=== PATIENT | female | born 1950 | race Caucasian/White ===

== ENCOUNTER 2019-02-02 05:20 | Day surgery (SDC) | payer OTHER ==
[~2019-02-02 05:20] MED LIST: AMBIEN5 MG; NEURONTIN300 MG; NORVASC2.5 M1; SIMVASTATIN5 MG; ULTRACET
[2019-02-02] MEDS ORDERED: ULTRACET PO (08:06)
== END 2019-02-02 10:20 | disposition home or self-care (01) ==
LOC: CIR.AMB 05:20
DX: C21.1 Malignant neoplasm of anal canal (principal)
CPT/HCPCS: 36561; C1751

== ENCOUNTER 2019-08-31 06:00 | Day surgery (SDC) | payer OTHER ==
[~2019-08-31 06:00] MED LIST changes: +ASPIR 8181 MG PO; +ULTRACET PO; +ZOLOFT25 MG PO
[2019-08-31] MEDS ORDERED: POLY119PG PO (10:32)
[2019-08-31] MEDS ORDERED: PERCOCET 5-3251 EACH PO (10:32)
[2019-08-31] MEDS ORDERED: NEURONTIN300 MG PO (10:32)
[2019-08-31] MEDS ORDERED: RECTICARE30 GM TOP (10:33)
== END 2019-08-31 15:05 | disposition home or self-care (01) ==
LOC: CIR.AMB 06:00
PROVIDERS: ATTEND Surgery
DX: C21.1 Malignant neoplasm of anal canal (principal); K62.4 Stenosis of anus and rectum

== ENCOUNTER 2019-12-29 09:24 | Day surgery (SDC) | payer OTHER ==
[~2019-12-29 09:24] MED LIST changes: +NEURONTIN300 MG PO; +PERCOCET 5-3251 EACH PO; +POLY119PG PO; +RECTICARE30 GM TOP
== END 2019-12-29 14:23 | disposition home or self-care (01) ==
LOC: AMB-ENDOS 09:24
PROVIDERS: ATTEND Surgery
DX: C21.8 Malignant neoplasm of overlapping sites of rectum, anus and anal canal (principal); Z20.828 Contact with and (suspected) exposure to other viral communicable diseases

== ENCOUNTER 2020-01-20 09:21 | Outpatient (CLI) | payer OTHER | END 2020-01-20 09:36 | disposition home or self-care (01) | LOC: LAB 09:21 | PROVIDERS: ATTEND Surgery | DX: R07.89 Other chest pain (principal); K62.4 Stenosis of anus and rectum; Z85.048 Personal history of other malignant neoplasm of rectum, rectosigmoid junction, and anus; C21.1 Malignant neoplasm of anal canal ==

== ENCOUNTER 2020-01-20 10:14 | Outpatient (CLI) | payer OTHER | END 2020-01-20 10:18 | disposition home or self-care (01) | LOC: RAD 10:14 | PROVIDERS: ATTEND Surgery | DX: R07.89 Other chest pain (principal); K62.4 Stenosis of anus and rectum; Z85.048 Personal history of other malignant neoplasm of rectum, rectosigmoid junction, and anus; C21.1 Malignant neoplasm of anal canal ==

== ENCOUNTER 2020-01-25 09:30 | Inpatient (IN) | payer OTHER ==
[~2020-01-25] VITALS: Ht 154.9 cm; Wt 49.9 kg
[2020-02-04] MEDS ORDERED: HYOSCYAMINE0.125 M1 SL (11:17)
[2020-02-04] MEDS ORDERED: INTEGRA F CAPS1 EACH PO (11:18)
[2020-02-04] MEDS ORDERED: ULTRACET PO (11:18)
== END 2020-02-04 12:22 | disposition home or self-care (01) | DRG 331 ==
LOC: SURH 02-01 05:42 → O/R 02-01 05:42 → SURH 02-01 09:30
PROVIDERS: ADMIT Surgery; ATTEND Surgery
PROC: 0DTP4ZZ Resection of Rectum, Percutaneous Endoscopic Approach (ICD-10-PCS; 2020-02-01)
PROC: 0DTQ4ZZ Resection of Anus, Percutaneous Endoscopic Approach (ICD-10-PCS; 2020-02-01)
PROC: 0D1N4Z4 Bypass Sigmoid Colon to Cutaneous, Percutaneous Endoscopic Approach (ICD-10-PCS; principal; 2020-02-01 10:30)
DX: C21.1 Malignant neoplasm of anal canal (principal); K62.4 Stenosis of anus and rectum; Z85.048 Personal history of other malignant neoplasm of rectum, rectosigmoid junction, and anus

== ENCOUNTER 2020-02-16 13:40 | Inpatient (IN) | payer OTHER ==
[~2020-02-16] VITALS: Ht 154.9 cm; Wt 40.8 kg
[~2020-02-16 13:40] MED LIST changes: +HYOSCYAMINE0.125 M1 SL; +INTEGRA F CAPS1 EACH PO
[2020-02-29] MEDS ORDERED: NEURONTIN300 MG PO (11:48)
[2020-02-29] MEDS ORDERED: ULTRACET PO (11:48)
[2020-02-29] MEDS ORDERED: HYOSCYAMINE0.125 M1 SL (11:48)
== END 2020-02-29 12:03 | disposition home or self-care (01) | DRG 336 ==
LOC: ER 13:40 → SURH 18:16
PROVIDERS: ADMIT Surgery; ATTEND Surgery
PROC: 3E0436Z Introduction of Nutritional Substance into Central Vein, Percutaneous Approach (ICD-10-PCS; 2020-02-17)
PROC: 02H633Z Insertion of Infusion Device into Right Atrium, Percutaneous Approach (ICD-10-PCS; 2020-02-17)
PROC: 0WQF4ZZ Repair Abdominal Wall, Percutaneous Endoscopic Approach (ICD-10-PCS; 2020-02-20)
PROC: 0DTJ4ZZ Resection of Appendix, Percutaneous Endoscopic Approach (ICD-10-PCS; 2020-02-20)
PROC: 0DN84ZZ Release Small Intestine, Percutaneous Endoscopic Approach (ICD-10-PCS; principal; 2020-02-20 09:45)
DX: K43.0 Incisional hernia with obstruction, without gangrene (principal); K56.51 Intestinal adhesions [bands], with partial obstruction; K35.890 Other acute appendicitis without perforation or gangrene; K56.7 Ileus, unspecified; Z20.828 Contact with and (suspected) exposure to other viral communicable diseases; D64.9 Anemia, unspecified; I11.0 Hypertensive heart disease with heart failure; I50.9 Heart failure, unspecified; K62.4 Stenosis of anus and rectum; Z93.3 Colostomy status

== ENCOUNTER 2021-01-09 21:01 | Emergency (ER) | payer OTHER ==
[~2021-01-09] VITALS: Ht 154.9 cm; Wt 54.4 kg
[2021-01-09] MEDS ORDERED: SERTRALINE 25 MG. (21:28)
[2021-01-09] MEDS ORDERED: ANASTROZOLE1 MG (21:28)
[2021-01-10] MEDS ORDERED: CIPRO500 MG PO (03:46)
== END 2021-01-10 03:53 | disposition home or self-care (01) ==
LOC: ER 21:01
DX: R10.32 Left lower quadrant pain (principal)

== ENCOUNTER 2021-01-13 13:26 | Inpatient (IN) | payer OTHER ==
[~2021-01-13] VITALS: Ht 154.9 cm; Wt 54.4 kg
[~2021-01-13 13:26] MED LIST changes: +ANASTROZOLE1 MG; +CIPRO500 MG PO; +SERTRALINE 25 MG.
[2021-01-19] MEDS ORDERED: TRAMADOL HCL50 MG PO (14:25)
[2021-01-19] MEDS ORDERED: ABANEU-SL TABL1 EACH SL (14:25)
[2021-01-19] MEDS ORDERED: ANASTROZOLE1 MG PO (14:25)
[2021-01-19] MEDS ORDERED: PRE PROTEIN1 EACH PO (14:25)
[2021-01-19] MEDS ORDERED: CIPRO500 MG PO (14:25)
[2021-01-19] MEDS ORDERED: INTEGRA F CAPS1 EACH PO (14:25)
[2021-01-19] MEDS ORDERED: NORVASC2.5 M1 PO (14:25)
[2021-01-19] MEDS ORDERED: AMBIEN5 MG PO (14:25)
[2021-01-19] MEDS ORDERED: NEURONTIN300 MG PO (14:25)
== END 2021-01-19 14:55 | disposition home or self-care (01) | DRG 694 ==
LOC: ER 13:26 → SEC-K 01-14 12:30 → SURH 01-14 12:30
PROVIDERS: Surgery; ADMIT Internal Medicine Geriatric Medicine; ATTEND Internal Medicine Geriatric Medicine
PROC: BW2110Z Computerized Tomography (CT Scan) of Abdomen and Pelvis using Low Osmolar Contrast, Unenhanced and Enhanced (ICD-10-PCS; 2021-01-14)
PROC: BT1FZZZ Fluoroscopy of Left Kidney, Ureter and Bladder (ICD-10-PCS; 2021-01-15)
PROC: 0TJ Urinary System, Inspection (ICD-10-PCS; principal; 2021-01-15 13:45)
PROC: 0T9130Z Drainage of Left Kidney with Drainage Device, Percutaneous Approach (ICD-10-PCS; 2021-01-16)
PROC: BW40ZZZ Ultrasonography of Abdomen (ICD-10-PCS; 2021-01-16)
DX: N13.30 Unspecified hydronephrosis (principal); C21.1 Malignant neoplasm of anal canal; N35.82 Other urethral stricture, female; K59.00 Constipation, unspecified; N17.8 Other acute kidney failure; Z20.822 Contact with and (suspected) exposure to COVID-19; I11.9 Hypertensive heart disease without heart failure; D64.9 Anemia, unspecified

== ENCOUNTER 2021-02-13 14:40 | Inpatient (IN) | payer OTHER ==
[~2021-02-13] VITALS: Ht 154.9 cm; Wt 52.2 kg
[~2021-02-13 14:40] MED LIST changes: +ABANEU-SL TABL1 EACH SL; +AMBIEN5 MG PO; +ANASTROZOLE1 MG PO; +NORVASC2.5 M1 PO; +PRE PROTEIN1 EACH PO; +TRAMADOL HCL50 MG PO
[2021-02-23] MEDS ORDERED: AMBIEN5 MG PO (12:30)
[2021-02-23] MEDS ORDERED: HYOSCYAMINE0.125 M1 SL (12:30)
[2021-02-23] MEDS ORDERED: NORFLEX100MG PO (12:30)
[2021-02-23] MEDS ORDERED: NEURONTIN300 MG PO (12:30)
[2021-02-23] MEDS ORDERED: ABANEU-SL TABL1 EACH SL (12:30)
[2021-02-23] MEDS ORDERED: FAMOTIDINE20 MG PO (12:30)
[2021-02-23] MEDS ORDERED: ANASTROZOLE1 MG PO (12:30)
[2021-02-23] MEDS ORDERED: INTEGRA F CAPS1 EACH PO (12:30)
[2021-02-23] MEDS ORDERED: PERCOCET 5-3251 EACH PO (12:41)
== END 2021-02-23 13:15 | disposition home or self-care (01) | DRG 699 ==
LOC: ER 14:40 → SEC-K 22:11 → SURH 02-14 12:40
PROVIDERS: ADMIT Internal Medicine Geriatric Medicine; ATTEND Internal Medicine Geriatric Medicine
PROC: BW21ZZZ Computerized Tomography (CT Scan) of Abdomen and Pelvis (ICD-10-PCS; 2021-02-13)
PROC: 0T25X0Z Change Drainage Device in Kidney, External Approach (ICD-10-PCS; principal; 2021-02-14)
PROC: 02HV33Z Insertion of Infusion Device into Superior Vena Cava, Percutaneous Approach (ICD-10-PCS; 2021-02-21)
DX: N99.522 Malfunction of incontinent external stoma of urinary tract (principal); N13.6 Pyonephrosis; C20 Malignant neoplasm of rectum; N10 Acute pyelonephritis; B96.1 Klebsiella pneumoniae [K. pneumoniae] as the cause of diseases classified elsewhere; I10 Essential (primary) hypertension; D64.9 Anemia, unspecified

== ENCOUNTER → 2021-03-25 | Day surgery (SDC) | payer OTHER ==
[~2021-03-25] MED LIST changes: +CLONAZEPAM0.5 MG PO; +FAMOTIDINE20 MG PO; +HORIZANT300 MG PO; +NORFLEX100MG PO
== END | disposition home or self-care (01) ==
LOC: ADM 03-20 07:45 → CIR.AMB 07:45
PROVIDERS: ATTEND Urology
DX: N13.1 Hydronephrosis with ureteral stricture, not elsewhere classified (principal); Z20.822 Contact with and (suspected) exposure to COVID-19

== ENCOUNTER 2021-08-27 15:55 | Emergency (ER) | payer OTHER ==
[~2021-08-27] VITALS: Ht 154.9 cm; Wt 51.3 kg
== END 2021-08-27 21:50 | disposition home or self-care (01) ==
LOC: ER 15:55
DX: M54.50 Low back pain, unspecified (principal); Z88.0 Allergy status to penicillin

== ENCOUNTER 2021-09-04 07:42 | Inpatient (IN) | payer OTHER ==
[~2021-09-04] VITALS: Ht 152.4 cm; Wt 51.3 kg
[2021-09-26] MEDS ORDERED: HYOSCYAMINE0.125 M1 SL (08:29)
[2021-09-26] MEDS ORDERED: GABAPENTIN300 MG PO (08:29)
[2021-09-26] MEDS ORDERED: FENTANYL1 EAC3 TD (08:30)
[2021-09-26] MEDS ORDERED: ULTRAM50 MG PO (08:30)
== END 2021-09-26 10:59 | disposition home or self-care (01) | DRG 330 ==
LOC: ER 07:42 → SURG 12:34 → SURH 12:34
PROVIDERS: ADMIT Surgery; ATTEND Surgery
PROC: BW21YZZ Computerized Tomography (CT Scan) of Abdomen and Pelvis using Other Contrast (ICD-10-PCS; 2021-09-09)
PROC: 0T788DZ Dilation of Bilateral Ureters with Intraluminal Device, Via Natural or Artificial Opening Endoscopic (ICD-10-PCS; 2021-09-13)
PROC: 0TP98DZ Removal of Intraluminal Device from Ureter, Via Natural or Artificial Opening Endoscopic (ICD-10-PCS; 2021-09-13)
PROC: 0TP98DZ Removal of Intraluminal Device from Ureter, Via Natural or Artificial Opening Endoscopic (ICD-10-PCS; 2021-09-13)
PROC: 02HV33Z Insertion of Infusion Device into Superior Vena Cava, Percutaneous Approach (ICD-10-PCS; 2021-09-19)
PROC: 0D180Z8 Bypass Small Intestine to Small Intestine, Open Approach (ICD-10-PCS; principal; 2021-09-19 15:30)
DX: K56.690 Other partial intestinal obstruction (principal); N13.39 Other hydronephrosis; C18.9 Malignant neoplasm of colon, unspecified; C78.6 Secondary malignant neoplasm of retroperitoneum and peritoneum; D64.9 Anemia, unspecified; F43.23 Adjustment disorder with mixed anxiety and depressed mood; Z20.822 Contact with and (suspected) exposure to COVID-19; Z93.3 Colostomy status; I11.9 Hypertensive heart disease without heart failure

== ENCOUNTER 2022-02-26 09:18 | Outpatient (CLI) | payer OTHER ==
[~2022-02-26 09:18] MED LIST changes: +FENTANYL1 EAC3 TD; +GABAPENTIN300 MG PO; +ULTRAM50 MG PO
== END 2022-02-26 10:39 | disposition home or self-care (01) ==
LOC: TOM 09:18
DX: C44.520 Squamous cell carcinoma of anal skin (principal)
CPT/HCPCS: 71260; 74177; Q9965

== ENCOUNTER 2022-03-07 05:30 | Day surgery (SDC) | payer OTHER ==
[~2022-03-07] VITALS: Ht 154.9 cm; Wt 42.2 kg
== END 2022-03-07 12:25 | disposition home or self-care (01) ==
LOC: CIR.AMB 05:30
PROVIDERS: ATTEND Urology
DX: N35.92 Unspecified urethral stricture, female (principal); Z88.0 Allergy status to penicillin; Z20.822 Contact with and (suspected) exposure to COVID-19

== ENCOUNTER 2023-06-11 19:22 | Inpatient (IN) | payer OTHER ==
[~2023-06-11] VITALS: Ht 154.9 cm; Wt 47.6 kg
[2023-06-11] MEDS ORDERED: PERCOCET 10-321 EACH PO (20:14)
[2023-06-11] MEDS ORDERED: METRONIDAZOLE/SODIUM CHLORIDE 100 ML IV SCH (20:33)
[2023-06-11] MEDS ORDERED: PANTOPRAZOLE SODIUM 40 MG in 0.9 % SODIUM CHLORIDE 8 ML IV PUSH SCH (20:34)
[2023-06-11] MEDS ORDERED: GABAPENTIN 300 MG CAPSULE PO SCH (20:35)
[2023-06-11] MEDS ORDERED: OxyCODONE HCL/APAP UD (PERCOCET) PO PRN (20:45)
[2023-06-11] MEDS ORDERED: RINGERS SOLUTION,LACTATED 1,000 ML IV SCH (20:45)
[2023-06-11] MEDS ORDERED: CIPROFLOXACIN IN 5 % DEXTROSE 200 ML IV SCH (21:00)
[2023-06-11] MEDS ORDERED: ZOLPIDEM TARTRATE 5 MG TABLET PO SCH (21:00)
[2023-06-11 21:23] LABS: HEMATOCRIT 28.9 % (36.0-45.00); HEMOGLOBIN 9.7 g/dL (12.0-15.00); MEAN CELL VOLUME 96.6 fL (80.00-100.00); MEAN CORPUSCULAR HEMOGLOBIN 32.5 pg (27.00-32.0); MEAN CORPUSCULAR HGB CONC 33.6 g/dl (32.0-36.0); PLATELET COUNT 443 K/uL (150-450); RED CELL DISTRIBUTION WIDTH 13.5 % (11.5-14.5)
[2023-06-11 21:43] LABS: INR 1.02; PARTIAL THROMBOPLASTIN TIME 26.5 SECONDS (22.0-34.0); PROTHROMBIN TIME 10.7 SECONDS (9.0-11.5)
[2023-06-11 21:48] LABS: BILIRUBIN TOTAL 0.18 mg/dL (0.3-1.2); CALCIUM 9.4 mg/dL (8.5-10.1); CREATININE SERUM 1.18 mg/dL (0.55-1.02); GFR 45.02; GLOBULINA 4.3 G/DL (2.4-3.5); POTASSIUM 4.16 mEq/L (3.5-5.1); TOTAL PROTEIN 7.3 gm/dL (6.4-8.2)
[2023-06-11 21:58] LABS: URINE APPEARANCE Turbid; URINE BILIRRUBIN Negative (NEGATIVE); URINE BLOOD Moderate; URINE COLOR Yellow; URINE GLUCOSE Negative (NEGATIVE); URINE LEUKOCYTE Large; URINE NITRATE Negative; URINE UROBILINOGEN 0.2 E.U./dl
[2023-06-11 22:00] LABS: URINE BACTERIA 1606.4 uL (0.0-1933); URINE EPITHELIAL CELLS 16.3 uL (0.0-38.8); URINE RBC 87.5 uL (0.0-20.8)
[2023-06-11 22:13] LABS: URINE PROTEIN 100 (NEGATIVE); URINE WBC > 5548.3 uL (0.0-23.2)
[2023-06-12 14:30] LABS: CALCIUM 9.4 mg/dL (8.5-10.1); CHOL HDL RATIO 2.7 (0-5.0); CREATININE SERUM 1.02 mg/dL (0.55-1.02); GFR 53.27; POTASSIUM 3.71 mEq/L (3.5-5.1)
[2023-06-12] MEDS ORDERED: Cyanocobalamin/Mecobalamin 1 TAB.SL SL SCH (16:00)
[2023-06-12] MEDS ORDERED: SOD FERRIC GLUC COMPLX/SUCROSE 62.5 MG in 0.9 % SODIUM CHLORIDE 50 ML IV SCH (16:00)
[2023-06-12] MEDS ORDERED: AA 5 %/CALCIUM/LYTES/DEXT 20 % 2,000 ML CENTRAL SCH (17:00)
[2023-06-12] MEDS ORDERED: GABAPENTIN 300 MG CAPSULE PO SCH (17:00)
[2023-06-14] MEDS ORDERED: PANTOPRAZOLE SODIUM 40 MG/VIAL VIAL ONE (06:43)
[2023-06-14 07:12] LABS: CALCIUM 8.5 mg/dL (8.5-10.1); CREATININE SERUM 1.02 mg/dL (0.55-1.02); GFR 53.27; POTASSIUM 4.12 mEq/L (3.5-5.1)
[2023-06-14 07:51] LABS: HEMATOCRIT 25.3 % (36.0-45.00); PLATELET COUNT 388 K/uL (150-450); RED BLOOD COUNT 2.66 M/uL (4.00-6.00); RED CELL DISTRIBUTION WIDTH 13.6 % (11.5-14.5)
[2023-06-14 07:52] LABS: MEAN CORPUSCULAR HEMOGLOBIN 33.4 pg (27.00-32.0)
[2023-06-14 07:53] LABS: HEMOGLOBIN 8.9 g/dL (12.0-15.00)
[2023-06-14] MEDS ORDERED: ONDANSETRON HCL 4 MG in 0.9 % SODIUM CHLORIDE 50 ML IV PRN (18:00)
[2023-06-15 07:10] LABS: HEMATOCRIT 26.5 % (36.0-45.00); MEAN CELL VOLUME 95.4 fL (80.00-100.00); MEAN CORPUSCULAR HEMOGLOBIN 32.5 pg (27.00-32.0); PLATELET COUNT 328 K/uL (150-450); RED BLOOD COUNT 2.78 M/uL (4.00-6.00); RED CELL DISTRIBUTION WIDTH 14.1 % (11.5-14.5)
[2023-06-15 07:29] LABS: INR 1.18; PARTIAL THROMBOPLASTIN TIME 28.8 SECONDS (22.0-34.0); PROTHROMBIN TIME 12.2 SECONDS (9.0-11.5)
[2023-06-15 07:37] LABS: ALBUMIN 2.3 gm/dL (3.4-5.0); ALKALINE PHOSPHATASE 82 U/L (50-136); ALT/SGPT 8 U/L (12-78); ANION GAP 5 (10.0-20.0); AST/SGOT 8 U/L (15-37); BILIRUBIN,CONJUGATED < 0.10 mg/dL (0.0-0.2); BLOOD UREA NITROGEN 20 mg/dL (7-18); BUN CREA RATIO 24 (7.0-25.0); CALCIUM 8.7 mg/dL (8.5-10.1); CARBON DIOXIDE 30 mEq/L (21-32); CHLORIDE 105 mmol/L (98-107); CHOL HDL RATIO 1.6 (0-5.0); CHOLESTEROL 98 mg/dL (0-200); CREATININE SERUM 0.85 mg/dL (0.55-1.02); GFR 65.74; GLOBULINA 2.9 G/DL (2.4-3.5); GLUCOSE FASTING 147 mg/dL (65-100); HDL 61 mg/dl (40-60); LDL 27 mg/dl (0-130); OSMOLALITY SERUM 277 MOSM/KG (275-295); POTASSIUM 3.97 mEq/L (3.5-5.1); SODIUM 136 mmol/L (136-145); TOTAL PROTEIN 5.2 gm/dL (6.4-8.2); TRIGLYCERIDES 50 mg/dL (0-150); VLDL 10 (0-39)
[2023-06-15] MEDS ORDERED: AMINO ACIDS/PROTEIN HYDROLYS 30 ML BLIST.PACK PO SCH (11:00)
[2023-06-15] MEDS ORDERED: HYOSCYAMINE SULFATE 0.125 MG TAB.SUBL SL PRN (13:45)
[2023-06-15] MEDS ORDERED: MEPERIDINE HCL/PF 50 MG/ML VIAL IV PRN (15:45)
[2023-06-17] MEDS ORDERED: ENOXAPARIN SODIUM 40 MG/0.4 ML SYRINGE SUBCUTANEO SCH (04:47)
[2023-06-18] MEDS ORDERED: fentaNYL 25 MCG PATCH.TD72 TD SCH (09:00)
[2023-06-18] MEDS ORDERED: CHOLESTYRAMINE/ASPARTAME LIGHT 4 G/PKT PACKET PO ONE (21:45)
[2023-06-19 06:40] LABS: HEMOGLOBIN 9.5 g/dL (12.0-15.00); MEAN CELL VOLUME 95.3 fL (80.00-100.00); MEAN CORPUSCULAR HEMOGLOBIN 32.2 pg (27.00-32.0); MEAN CORPUSCULAR HGB CONC 33.8 g/dl (32.0-36.0); PLATELET COUNT 308 K/uL (150-450); RED BLOOD COUNT 2.94 M/uL (4.00-6.00); RED CELL DISTRIBUTION WIDTH 13.8 % (11.5-14.5)
[2023-06-19 07:05] LABS: CALCIUM 8.5 mg/dL (8.5-10.1); CREATININE SERUM 0.88 mg/dL (0.55-1.02); GFR 63.16; MAGNESIUM 2.1 mg/dL (1.8-2.4); PHOSPHOROUS 3.3 mg/dL (2.5-4.9); POTASSIUM 4.61 mEq/L (3.5-5.1)
[2023-06-19] MEDS ORDERED: SOD FERRIC GLUC COMPLX/SUCROSE 62.5 MG in 0.9 % SODIUM CHLORIDE 50 ML IV SCH (09:00)
[2023-06-19] MEDS ORDERED: MENTHOL/CETYLPYRD CL 1 LOZENGE MM SCH (15:45)
[2023-06-19] MEDS ORDERED: METRONIDAZOLE/SODIUM CHLORIDE 100 ML IV SCH (17:00)
[2023-06-19] MEDS ORDERED: CIPROFLOXACIN IN 5 % DEXTROSE 200 ML IV SCH (21:00)
[2023-06-20] MEDS ORDERED: MAGNESIUM HYDROXIDE PO SCH (17:00)
[2023-06-20] MEDS ORDERED: ALUMINUM HYDROXIDE PO SCH (17:00)
[2023-06-20] MEDS ORDERED: DIPHENHYDRAMINE HCL PO SCH (17:00)
[2023-06-20] MEDS ORDERED: LIDOCAINE HCL PO SCH (17:00)
[2023-06-20] MEDS ORDERED: SIMETHICONE PO SCH (17:00)
[2023-06-20] MEDS ORDERED: MAG HYDROX/ALUMINUM HYD/SIMETH 30 ML BLIST.PACK PO ONE (17:01)
[2023-06-21] MEDS ORDERED: MAG HYDROX/ALUMINUM HYD/SIMETH 30 ML BLIST.PACK PO ONE (07:12)
[2023-06-21] MEDS ORDERED: MAGNESIUM CITRATE 296 ML BOTTLE PO ONE (15:15)
[2023-06-21] MEDS ORDERED: AA 4.25%/CAL/LYTES/DEXT 5% 1,000 ML PERIFERAL SCH (17:00)
[2023-06-22 07:33] LABS: MEAN CELL VOLUME 96.3 fL (80.00-100.00); MEAN CORPUSCULAR HGB CONC 34.1 g/dl (32.0-36.0); PLATELET COUNT 230 K/uL (150-450); RED CELL DISTRIBUTION WIDTH 13.6 % (11.5-14.5)
[2023-06-22 07:44] LABS: INR 1.05; PARTIAL THROMBOPLASTIN TIME 31.5 SECONDS (22.0-34.0)
[2023-06-22 07:49] LABS: ALBUMIN 2.4 gm/dL (3.4-5.0); ALKALINE PHOSPHATASE 109 U/L (50-136); ALT/SGPT 12 U/L (12-78); ANION GAP 8 (10.0-20.0); AST/SGOT 28 U/L (15-37); BILIRUBIN TOTAL 0.24 mg/dL (0.3-1.2); BILIRUBIN,CONJUGATED < 0.10 mg/dL (0.0-0.2); BILIRUBIN,UNCONJUGATED 0.14 mg/dL (0.0-0.6); BLOOD UREA NITROGEN 23 mg/dL (7-18); BUN CREA RATIO 29 (7.0-25.0); CALCIUM 8.3 mg/dL (8.5-10.1); CARBON DIOXIDE 30 mEq/L (21-32); CHLORIDE 105 mmol/L (98-107); CHOLESTEROL 99 mg/dL (0-200); CREATININE SERUM 0.79 mg/dL (0.55-1.02); GFR 71.54; GLOBULINA 2.8 G/DL (2.4-3.5); GLUCOSE FASTING 98 mg/dL (65-100); HDL 33 mg/dl (40-60); LDL 39 mg/dl (0-130); OSMOLALITY SERUM 279 MOSM/KG (275-295); PHOSPHOROUS 3.5 mg/dL (2.5-4.9); POTASSIUM 4.63 mEq/L (3.5-5.1); SODIUM 138 mmol/L (136-145); TOTAL PROTEIN 5.2 gm/dL (6.4-8.2); TRIGLYCERIDES 136 mg/dL (0-150); VLDL 27 (0-39)
[2023-06-22] MEDS ORDERED: FAMOTIDINE/PF 20 MG/2 ML VIAL IV SCH (09:00)
[2023-06-22 09:07] LABS: MEAN CORPUSCULAR HEMOGLOBIN 32.6 pg (27.00-32.0)
[2023-06-22 09:08] LABS: HEMOGLOBIN 8.5 g/dL (12.0-15.00)
[2023-06-22] MEDS ORDERED: MIDAZOLAM HCL 2 MG/2 ML VIAL IV ONE (09:45)
[2023-06-22] MEDS ORDERED: DIPHENHYDRAMINE HCL 50 MG/ML VIAL 1ML IV ONE (09:45)
[2023-06-22] MEDS ORDERED: fentaNYL CITRATE 50 MCG/ML AMPUL IV PUSH ONE (09:45)
[2023-06-22] MEDS ORDERED: FUROsemide 20 MG/2 ML VIAL IV SCH (14:00)
[2023-06-22] MEDS ORDERED: MAG HYDROX/ALUMINUM HYD/SIMETH 30 ML BLIST.PACK PO ONE (14:59)
[2023-06-23] MEDS ORDERED: MAG HYDROX/ALUMINUM HYD/SIMETH 30 ML BLIST.PACK PO ONE ×2 (07:32→18:20)
[2023-06-23] MEDS ORDERED: FUROsemide 20 MG/2 ML VIAL ONE (16:07)
[2023-06-23 18:42] LABS: HEMATOCRIT 40.1 % (36.0-45.00); HEMOGLOBIN 13.7 g/dL (12.0-15.00); MEAN CELL VOLUME 94.2 fL (80.00-100.00); MEAN CORPUSCULAR HEMOGLOBIN 32.2 pg (27.00-32.0); MEAN CORPUSCULAR HGB CONC 34.2 g/dl (32.0-36.0); PLATELET COUNT 240 K/uL (150-450); RED BLOOD COUNT 4.26 M/uL (4.00-6.00); RED CELL DISTRIBUTION WIDTH 14.8 % (11.5-14.5)
[2023-06-24 06:18] LABS: HEMATOCRIT 37.3 % (36.0-45.00); HEMOGLOBIN 12.9 g/dL (12.0-15.00); MEAN CELL VOLUME 93.5 fL (80.00-100.00); MEAN CORPUSCULAR HEMOGLOBIN 32.5 pg (27.00-32.0); MEAN CORPUSCULAR HGB CONC 34.7 g/dl (32.0-36.0); PLATELET COUNT 220 K/uL (150-450); RED BLOOD COUNT 3.99 M/uL (4.00-6.00); RED CELL DISTRIBUTION WIDTH 14.7 % (11.5-14.5)
[2023-06-24] MEDS ORDERED: MAG HYDROX/ALUMINUM HYD/SIMETH 30 ML BLIST.PACK PO ONE ×2 (07:29→20:26)
[2023-06-24] MEDS ORDERED: APIXABAN 2.5 MG TABLET PO SCH (21:00)
[2023-06-25] MEDS ORDERED: PANTOPRAZOLE SODIUM 40 MG/VIAL VIAL IV SCH (06:00)
[2023-06-25] MEDS ORDERED: MAG HYDROX/ALUMINUM HYD/SIMETH 30 ML BLIST.PACK PO ONE ×2 (07:40→10:07)
[2023-06-25 08:06] LABS: HEMATOCRIT 38.5 % (36.0-45.00); HEMOGLOBIN 13.2 g/dL (12.0-15.00); MEAN CELL VOLUME 93.8 fL (80.00-100.00); MEAN CORPUSCULAR HEMOGLOBIN 32.2 pg (27.00-32.0); MEAN CORPUSCULAR HGB CONC 34.3 g/dl (32.0-36.0); PLATELET COUNT 221 K/uL (150-450); RED CELL DISTRIBUTION WIDTH 14.2 % (11.5-14.5)
[2023-06-25] MEDS ORDERED: ELIQUIS2.5 MG PO (08:46)
== END 2023-06-25 10:53 | disposition home or self-care (01) | DRG 394 ==
LOC: ER 19:23 → SEC-K 20:55 → SURG 06-12 01:54 → SEC-K 06-12 04:02 → SURH 06-12 18:07
PROVIDERS: General Practice; Internal Medicine; Internal Medicine Geriatric Medicine; ADMIT Surgery; ATTEND Surgery
PROC: BW21YZZ Computerized Tomography (CT Scan) of Abdomen and Pelvis using Other Contrast (ICD-10-PCS; 2023-06-11)
PROC: 02HV33Z Insertion of Infusion Device into Superior Vena Cava, Percutaneous Approach (ICD-10-PCS; principal; 2023-06-13)
PROC: 3E0436Z Introduction of Nutritional Substance into Central Vein, Percutaneous Approach (ICD-10-PCS; 2023-06-13)
PROC: B54CZZZ Ultrasonography of Left Lower Extremity Veins (ICD-10-PCS; 2023-06-13)
PROC: 0DJD8ZZ Inspection of Lower Intestinal Tract, Via Natural or Artificial Opening Endoscopic (ICD-10-PCS; 2023-06-22)
PROC: 30243N1 Transfusion of Nonautologous Red Blood Cells into Central Vein, Percutaneous Approach (ICD-10-PCS; 2023-06-23)
DX: N82.4 Other female intestinal-genital tract fistulae (principal); C21.2 Malignant neoplasm of cloacogenic zone; K56.609 Unspecified intestinal obstruction, unspecified as to partial versus complete obstruction; N13.30 Unspecified hydronephrosis; I82.402 Acute embolism and thrombosis of unspecified deep veins of left lower extremity; D64.9 Anemia, unspecified; N20.0 Calculus of kidney; N26.1 Atrophy of kidney (terminal); F43.23 Adjustment disorder with mixed anxiety and depressed mood; K12.1 Other forms of stomatitis; I10 Essential (primary) hypertension; Z51.12 Encounter for antineoplastic immunotherapy

== ENCOUNTER 2023-10-23 13:02 | Inpatient (IN) | payer OTHER ==
[~2023-10-23] VITALS: Ht 154.9 cm; Wt 40.8 kg
[~2023-10-23 13:02] MED LIST changes: +ELIQUIS2.5 MG PO; +GABAPENTIN300 M2; +PERCOCET 10-321 EACH PO
--- NOTE | 2023-10-23 13:07 | NUR ---
SE RECIBE PTE FEMENINA DE 73 ANOS AAOX3 QUIEN AL [place] REFIERE DOLOR ABDOMINAL EN COMPANIA DE VOMITOS Y NAUCEAS. PTE INDICA ESTO INICIA HACE 1 SINTIA SE MONITOREAN S/V Y SE UBICA EN SERAFIN.
[2023-10-23] MEDS ORDERED: FAMOtidine 10 MG/ML (4ML VIAL) IV STA (15:02)
[2023-10-23] MEDS ORDERED: ONDANSETRON HCL 2 MG/ML VIAL IV STA (15:03)
[2023-10-23] MEDS ORDERED: 0.9 % SODIUM CHLORIDE 1,000 ML IV STA (15:06)
[2023-10-23] MEDS ORDERED: FAMOtidine 200mg/20ml VIAL ONE (15:16)
[2023-10-23] MEDS ORDERED: ONDANSETRON HCL 2 MG/ML VIAL ONE ×2 (15:16→17:04)
--- NOTE | 2023-10-23 15:26 | NUR ---
SE ORIENTA PTE SOBRE TX MEDICO EL CUAL REFIERE ENTENDER.SE LE EXTRAEN MUESTRAS BAJO MEDIDAS ASEPTICAS,SE CANALIZA Y SE ADMINISTRAN MEDICAMENTOS NORIS ORDEN MEDICA.SE NOTIFICA CT PENDIENTE.
[2023-10-23 15:49] LABS: HEMATOCRIT 35.3 % (36.0-45.00); HEMOGLOBIN 11.8 g/dL (12.0-15.00); MEAN CORPUSCULAR HEMOGLOBIN 31.8 pg (27.00-32.0); MEAN CORPUSCULAR HGB CONC 33.5 g/dl (32.0-36.0); PLATELET COUNT 393 K/uL (150-450); RED BLOOD COUNT 3.71 M/uL (4.00-6.00); RED CELL DISTRIBUTION WIDTH 13.4 % (11.5-14.5); URINE APPEARANCE Turbid; URINE BILIRRUBIN Negative (NEGATIVE); URINE BLOOD Large; URINE COLOR Yellow; URINE GLUCOSE Negative (NEGATIVE); URINE KETONE Trace (NEGATIVE); URINE LEUKOCYTE Large; URINE NITRATE Positive; URINE UROBILINOGEN 0.2 E.U./dl
[2023-10-23 15:51] LABS: URINE CAST 7.48 uL (0.0-1.40); URINE RBC 1096.4 uL (0.0-20.8)
[2023-10-23 16:12] LABS: URINE BACTERIA > 9821.5 uL (0.0-1933); URINE EPITHELIAL CELLS 0.7 uL (0.0-38.8); URINE MUCUS MODERATE; URINE PROTEIN 300 (NEGATIVE)
[2023-10-23 16:18] LABS: ALBUMIN 3.2 gm/dL (3.4-5.0); ALKALINE PHOSPHATASE 122 U/L (50-136); ALT/SGPT 14 U/L (12-78); AMYLASE 68 U/L (25-115); ANION GAP 9 (10.0-20.0); AST/SGOT 16 U/L (15-37); BILIRUBIN TOTAL 0.31 mg/dL (0.3-1.2); BILIRUBIN,CONJUGATED < 0.10 mg/dL (0.0-0.2); BILIRUBIN,UNCONJUGATED 0.21 mg/dL (0.0-0.6); BLOOD UREA NITROGEN 17 mg/dL (7-18); BUN CREA RATIO 14 (7.0-25.0); CALCIUM 9.8 mg/dL (8.5-10.1); CARBON DIOXIDE 33 mEq/L (21-32); CHLORIDE 102 mmol/L (98-107); CREATININE SERUM 1.18 mg/dL (0.55-1.02); GFR 45.02; GLUCOSE FASTING 119 mg/dL (65-100); LIPASE 22 U/L (13-75); OSMOLALITY SERUM 280 MOSM/KG (275-295); POTASSIUM 4.67 mEq/L (3.5-5.1); SODIUM 139 mmol/L (136-145); TOTAL PROTEIN 7.6 gm/dL (6.4-8.2)
[2023-10-23] MEDS ORDERED: PANTOPRAZOLE SODIUM 40 MG/VIAL VIAL IV SCH ×2 (16:28→17:00)
[2023-10-23] MEDS ORDERED: TRAMADOL HCL 50 MG TABLET PO SCH (16:29)
[2023-10-23] MEDS ORDERED: RINGERS SOLUTION,LACTATED 1,000 ML IV SCH ×2 (16:30→16:45)
[2023-10-23] MEDS ORDERED: AA 4.25%/CAL/LYTES/DEXT 5% 1,000 ML PERIFERAL SCH ×2 (16:30→18:00)
[2023-10-23] MEDS ORDERED: CIPROFLOXACIN IN 5 % DEXTROSE 400 MG/200 ML PIGGYBAG IV SCH (16:32)
[2023-10-23] MEDS ORDERED: CIPROFLOXACIN IN 5 % DEXTROSE 400 MG/200 ML PIGGYBAG IV ONE (16:54)
[2023-10-23] MEDS ORDERED: GABAPENTIN 300 MG CAPSULE PO SCH (17:00)
[2023-10-23 17:20] VITALS: BP 119/71; O2SAT 98
[2023-10-23 17:29] LABS: INR 1.04; PARTIAL THROMBOPLASTIN TIME 27.9 SECONDS (22.0-34.0); PROTHROMBIN TIME 10.9 SECONDS (9.0-11.5)
[2023-10-23] MEDS ORDERED: ONDANSETRON HCL 2 MG/ML VIAL IV SCH (18:00)
[2023-10-23 18:23] LABS: ALBUMIN 3.3 gm/dL (3.4-5.0); BILIRUBIN TOTAL 0.36 mg/dL (0.3-1.2); CALCIUM 9.7 mg/dL (8.5-10.1); CREATININE SERUM 1.09 mg/dL (0.55-1.02); GFR 49.34; GLOBULINA 4.4 G/DL (2.4-3.5); MAGNESIUM 2.5 mg/dL (1.8-2.4); PHOSPHOROUS 3.7 mg/dL (2.5-4.9); POTASSIUM 3.81 mEq/L (3.5-5.1); TOTAL PROTEIN 7.7 gm/dL (6.4-8.2)
[2023-10-24] VITALS: BP 149/69; O2SAT 97
[2023-10-24 07:30] VITALS: BP 115/52; O2SAT 98
[2023-10-24 08:38] LABS: HEMATOCRIT 30.4 % (36.0-45.00); HEMOGLOBIN 10.4 g/dL (12.0-15.00); MEAN CELL VOLUME 94.5 fL (80.00-100.00); MEAN CORPUSCULAR HEMOGLOBIN 32.2 pg (27.00-32.0); MEAN CORPUSCULAR HGB CONC 34.1 g/dl (32.0-36.0); PLATELET COUNT 336 K/uL (150-450); RED BLOOD COUNT 3.22 M/uL (4.00-6.00); RED CELL DISTRIBUTION WIDTH 12.9 % (11.5-14.5)
[2023-10-24 08:55] LABS: ALBUMIN 2.7 gm/dL (3.4-5.0); CALCIUM 9.1 mg/dL (8.5-10.1); CREATININE SERUM 1.07 mg/dL (0.55-1.02); GFR 50.41; MAGNESIUM 2.5 mg/dL (1.8-2.4); PHOSPHOROUS 3.8 mg/dL (2.5-4.9); POTASSIUM 3.93 mEq/L (3.5-5.1)
[2023-10-24] MEDS ORDERED: ENOXAPARIN SODIUM 40 MG/0.4 ML SYRINGE SUBCUTANEO SCH ×2 (13:30→21:00)
[2023-10-24 14:15] LABS: CALCIUM 9.4 mg/dL (8.5-10.1); CHOL HDL RATIO 2.4 (0-5.0); CREATININE SERUM 1.11 mg/dL (0.55-1.02); GFR 48.32; POTASSIUM 3.95 mEq/L (3.5-5.1)
[2023-10-24 16:24] VITALS: BP 143/82; O2SAT 98
[2023-10-24] MEDS ORDERED: AMINO ACIDS 4.25 %/DEXTROSE 5% 1,000 ML PERIFERAL SCH (17:00)
[2023-10-25] VITALS: BP 115/66; O2SAT 97
[2023-10-25] MEDS ORDERED: ENOXAPARIN SODIUM 40 MG/0.4 ML SYRINGE SUBCUTANEO SCH (09:00)
[2023-10-25 10:15] VITALS: BP 112/62; O2SAT 97
[2023-10-25 10:16] VITALS: BP 112/62; O2SAT 97
[2023-10-25 11:33] LABS: ob NEGATIVE (NEGATIVE)
[2023-10-25 11:46] LABS: FECAL LEUKOCYTES POSITIVE (NEGATIVE)
[2023-10-25 16:00] VITALS: BP 138/65; O2SAT 99
[2023-10-26] VITALS: BP 136/85; O2SAT 99
[2023-10-26 07:19] LABS: HEMATOCRIT 29.6 % (36.0-45.00); HEMOGLOBIN 10.2 g/dL (12.0-15.00); MEAN CELL VOLUME 95.6 fL (80.00-100.00); MEAN CORPUSCULAR HEMOGLOBIN 33.1 pg (27.00-32.0); MEAN CORPUSCULAR HGB CONC 34.6 g/dl (32.0-36.0); PLATELET COUNT 313 K/uL (150-450); RED BLOOD COUNT 3.09 M/uL (4.00-6.00); RED CELL DISTRIBUTION WIDTH 12.6 % (11.5-14.5)
[2023-10-26 07:35] LABS: ERYTHROCYTE SEDIMENTATION RATE 40 mm/hr
[2023-10-26 08:00] VITALS: BP 130/56; O2SAT 98
[2023-10-26 08:13] LABS: INR 1.06; PROTHROMBIN TIME 11.1 SECONDS (9.0-11.5)
[2023-10-26 08:39] LABS: ALBUMIN 2.6 gm/dL (3.4-5.0); BILIRUBIN TOTAL 0.29 mg/dL (0.3-1.2); BILIRUBIN,CONJUGATED 0.11 mg/dL (0.0-0.2); BILIRUBIN,UNCONJUGATED 0.18 mg/dL (0.0-0.6); CALCIUM 9.1 mg/dL (8.5-10.1); CHOL HDL RATIO 2.3 (0-5.0); CREATININE SERUM 0.94 mg/dL (0.55-1.02); GFR 58.53; GLOBULINA 2.9 G/DL (2.4-3.5); MAGNESIUM 2.1 mg/dL (1.8-2.4); POTASSIUM 4.08 mEq/L (3.5-5.1); TOTAL PROTEIN 5.5 gm/dL (6.4-8.2)
[2023-10-26 08:45] LABS: C-REACTIVE PROTEIN 1.58 MG/DL (0.00-0.29)
[2023-10-26 17:57] VITALS: BP 166/67; O2SAT 99
[2023-10-26] MEDS ORDERED: ZOLPIDEM TARTRATE 10 MG TABLET PO SCH (21:00)
[2023-10-27 00:35] VITALS: BP 138/62; O2SAT 100
[2023-10-27] MEDS ORDERED: OxyCODONE HCL/APAP UD (PERCOCET) PO STA (00:58)
[2023-10-27] MEDS ORDERED: OxyCODONE HCL/APAP UD (PERCOCET) PO PRN (01:00)
[2023-10-27] MEDS ORDERED: DIPHENHYDRAMINE HCL 50 MG/ML VIAL 1ML IV SCH (07:30)
[2023-10-27 08:00] VITALS: BP 109/64; O2SAT 100
[2023-10-27] MEDS ORDERED: ENOXAPARIN SODIUM 40 MG/0.4 ML SYRINGE SUBCUTANEO SCH (09:00)
[2023-10-27 16:00] VITALS: BP 130/66; O2SAT 98
[2023-10-27] MEDS ORDERED: LORazepam 2 MG/ML VIAL IV PUSH SCH (21:00)
[2023-10-28 00:41] VITALS: BP 112/64; O2SAT 100
[2023-10-28 09:46] VITALS: BP 118/58; O2SAT 98
[2023-10-28] MEDS ORDERED: VANCOMYCIN HCL 1,000 MG VIAL IV SCH (10:10)
[2023-10-28] MEDS ORDERED: SUCRALFATE 1 G TABLET PO SCH (13:00)
[2023-10-28 16:00] VITALS: BP 103/51; O2SAT 99
[2023-10-28] MEDS ORDERED: ONDANSETRON HCL 2 MG/ML VIAL IV STA (23:15)
[2023-10-29 00:22] VITALS: BP 115/64; O2SAT 100
[2023-10-29] MEDS ORDERED: ONDANSETRON HCL 2 MG/ML VIAL IV SCH (01:00)
[2023-10-29 08:00] VITALS: BP 114/53; O2SAT 97
[2023-10-29 08:49] LABS: HEMATOCRIT 32.4 % (36.0-45.00); HEMOGLOBIN 11.1 g/dL (12.0-15.00); MEAN CELL VOLUME 94.9 fL (80.00-100.00); MEAN CORPUSCULAR HEMOGLOBIN 32.6 pg (27.00-32.0); MEAN CORPUSCULAR HGB CONC 34.3 g/dl (32.0-36.0); PLATELET COUNT 301 K/uL (150-450); RED BLOOD COUNT 3.42 M/uL (4.00-6.00); RED CELL DISTRIBUTION WIDTH 12.1 % (11.5-14.5)
[2023-10-29] MEDS ORDERED: TRAMADOL HCL 50 MG TABLET PO SCH (09:00)
[2023-10-29 09:47] LABS: CALCIUM 9.3 mg/dL (8.5-10.1); CREATININE SERUM 0.99 mg/dL (0.55-1.02); GFR 55.14; PHOSPHOROUS 2.8 mg/dL (2.5-4.9); POTASSIUM 3.78 mEq/L (3.5-5.1)
[2023-10-29] MEDS ORDERED: PANTOPRAZOLE SODIUM 80 MG in 0.9 % SODIUM CHLORIDE 100 ML IV SCH (13:33)
[2023-10-29 16:00] VITALS: BP 97/60; O2SAT 99
[2023-10-29] MEDS ORDERED: AMIKACIN SULFATE 10 MG/ML REDILUIDO IV SCH (20:47)
[2023-10-29] MEDS ORDERED: LINEZOLID IN DEXTROSE 5% 300 ML IV SCH (21:00)
[2023-10-30 02:15] VITALS: BP 116/59; O2SAT 99
[2023-10-30 08:17] VITALS: BP 115/61; O2SAT 99
[2023-10-30] MEDS ORDERED: AMIKACIN SULFATE 250 MG/ML (500MG) VIAL IV NR (11:15)
[2023-10-30] MEDS ORDERED: AZTREONAM 2,000 MG in 0.9 % SODIUM CHLORIDE 100 ML IV SCH (13:00)
[2023-10-30] MEDS ORDERED: IOVERSOL 320 MG/ML - 50 ML VIAL IV ONE (15:29)
[2023-10-30] MEDS ORDERED: SUGAMMADEX SODIUM 200 MG/2 ML VIAL IV ONE (16:00)
[2023-10-30] MEDS ORDERED: CLOTRIMAZOLE 10 MG TROCHE MM SCH (17:00)
[2023-10-30 18:20] VITALS: BP 133/58; O2SAT 100
[2023-10-30] MEDS ORDERED: SODIUM CL 0.9% 100 ML IV.SOLN IV ONE (20:33)
[2023-10-30] MEDS ORDERED: MORPHINE SULFATE 4 MG/ML VIAL IV PRN (21:30)
[2023-10-31] VITALS: BP 143/65; O2SAT 99
[2023-10-31 08:58] VITALS: BP 127/71; O2SAT 97
[2023-10-31] MEDS ORDERED: DIPHENHYDRAMINE HCL 50 MG/ML VIAL 1ML IV NR (10:45)
[2023-10-31] MEDS ORDERED: METHYLPREDNISOLONE SOD SUCC 40 MG VIAL IV NR (10:45)
[2023-10-31] MEDS ORDERED: DIATRIZOATE MEGLUMINE, SODIUM 30 ML BOTTLE PO NR (11:00)
[2023-10-31 17:00] VITALS: BP 147/65; O2SAT 98
[2023-11-01] VITALS: BP 132/63; O2SAT 100
[2023-11-01 08:11] VITALS: BP 107/76; O2SAT 98
[2023-11-01 08:28] LABS: HEMATOCRIT 31.1 % (36.0-45.00); HEMOGLOBIN 10.7 g/dL (12.0-15.00); MEAN CELL VOLUME 92.5 fL (80.00-100.00); MEAN CORPUSCULAR HEMOGLOBIN 31.7 pg (27.00-32.0); MEAN CORPUSCULAR HGB CONC 34.3 g/dl (32.0-36.0); PLATELET COUNT 277 K/uL (150-450); RED BLOOD COUNT 3.36 M/uL (4.00-6.00); RED CELL DISTRIBUTION WIDTH 12.4 % (11.5-14.5)
[2023-11-01 09:07] LABS: CREATININE SERUM 0.89 mg/dL (0.55-1.02); GFR 62.35
[2023-11-01 10:15] LABS: POTASSIUM 2.59 mEq/L (3.5-5.1)
[2023-11-01] MEDS ORDERED: POTASSIUM PHOS,M-BASIC-D-BASIC 15 MM in 0.9 % SODIUM CHLORIDE 250 ML IV ONE (12:00)
[2023-11-01 17:00] VITALS: BP 146/68; O2SAT 99
[2023-11-01] MEDS ORDERED: PHENOL 177 ML BOTTLE MM SCH (17:00)
[2023-11-02] VITALS: BP 138/65; O2SAT 98
[2023-11-02 08:00] VITALS: BP 132/60; O2SAT 99
[2023-11-02] MEDS ORDERED: MAGNESIUM SULFATE/D5W 100 ML IV NR (08:45)
[2023-11-02] MEDS ORDERED: POTASSIUM CHLORIDE 20MEQ/100ML H2O PB IV SCH (08:45)
[2023-11-02] MEDS ORDERED: MEPERIDINE HCL/PF 25 MG/ML VIAL IV SCH (09:00)
[2023-11-02 09:06] LABS: HEMATOCRIT 31.9 % (36.0-45.00); MEAN CELL VOLUME 93.1 fL (80.00-100.00); MEAN CORPUSCULAR HEMOGLOBIN 32.1 pg (27.00-32.0); MEAN CORPUSCULAR HGB CONC 34.4 g/dl (32.0-36.0); PLATELET COUNT 282 K/uL (150-450); RED BLOOD COUNT 3.42 M/uL (4.00-6.00); RED CELL DISTRIBUTION WIDTH 12.3 % (11.5-14.5)
[2023-11-02 09:33] LABS: INR 1.07; PARTIAL THROMBOPLASTIN TIME 26.5 SECONDS (22.0-34.0); PROTHROMBIN TIME 11.2 SECONDS (9.0-11.5)
[2023-11-02 09:51] LABS: ALBUMIN 2.4 gm/dL (3.4-5.0); ALKALINE PHOSPHATASE 124 U/L (50-136); ALT/SGPT 25 U/L (12-78); ANION GAP 9 (10.0-20.0); AST/SGOT 13 U/L (15-37); BILIRUBIN,CONJUGATED < 0.10 mg/dL (0.0-0.2); BLOOD UREA NITROGEN 14 mg/dL (7-18); BUN CREA RATIO 16 (7.0-25.0); CALCIUM 8.8 mg/dL (8.5-10.1); CARBON DIOXIDE 31 mEq/L (21-32); CHLORIDE 102 mmol/L (98-107); CHOL HDL RATIO 1.8 (0-5.0); CHOLESTEROL 99 mg/dL (0-200); CREATININE SERUM 0.86 mg/dL (0.55-1.02); GFR 64.86; GLOBULINA 3.4 G/DL (2.4-3.5); GLUCOSE FASTING 115 mg/dL (65-100); HDL 54 mg/dl (40-60); LDL 34 mg/dl (0-130); OSMOLALITY SERUM 279 MOSM/KG (275-295); PHOSPHOROUS 2.7 mg/dL (2.5-4.9); SODIUM 139 mmol/L (136-145); TOTAL PROTEIN 5.8 gm/dL (6.4-8.2); TRIGLYCERIDES 55 mg/dL (0-150); VLDL 11 (0-39)
[2023-11-02 10:30] LABS: POTASSIUM 2.81 mEq/L (3.5-5.1)
[2023-11-02] MEDS ORDERED: MEPERIDINE HCL/PF 25 MG/ML VIAL IV PRN (11:00)
[2023-11-02 11:11] LABS: UREA CLEARANCE 30.8 ML/MIN
[2023-11-02] MEDS ORDERED: fentaNYL 25 MCG PATCH.TD72 TD SCH (13:01)
[2023-11-02 16:10] VITALS: BP 121/56; O2SAT 99
[2023-11-02] MEDS ORDERED: FAMOTIDINE/PF 20 MG in 0.9 % SODIUM CHLORIDE 8 ML IV PUSH SCH (21:00)
[2023-11-03 00:05] VITALS: BP 143/68; O2SAT 99
[2023-11-03 09:09] VITALS: BP 118/58; O2SAT 97
[2023-11-03 16:44] VITALS: BP 120/57; O2SAT 100
[2023-11-04 00:26] VITALS: BP 134/63; O2SAT 98
[2023-11-04 07:41] LABS: CALCIUM 9.2 mg/dL (8.5-10.1); CREATININE SERUM 0.98 mg/dL (0.55-1.02); GFR 55.79
[2023-11-04 08:17] VITALS: BP 165/65; O2SAT 98
[2023-11-04 08:23] LABS: POTASSIUM 2.94 mEq/L (3.5-5.1)
[2023-11-04] MEDS ORDERED: MAGNESIUM SULFATE/D5W 100 ML IV NR (10:15)
[2023-11-04] MEDS ORDERED: POTASSIUM CHLORIDE/NACL 0.9% 20 MEQ/1,000 ML PIGGYBAG IV NR (10:15)
[2023-11-04] MEDS ORDERED: POTASSIUM CHLORIDE 20MEQ/100ML H2O PB IV NR (12:45)
[2023-11-04] MEDS ORDERED: METRONIDAZOLE/SODIUM CHLORIDE 500 MG/100 ML PIGGYBACK IV SCH (14:30)
[2023-11-04 15:28] LABS: CALCIUM 9.1 mg/dL (8.5-10.1); CREATININE SERUM 0.84 mg/dL (0.55-1.02); GFR 66.65; PHOSPHOROUS 2.1 mg/dL (2.5-4.9); POTASSIUM 3.2 mEq/L (3.5-5.1)
[2023-11-04 16:00] VITALS: BP 140/66; O2SAT 98
[2023-11-04] MEDS ORDERED: POTASSIUM CHLORIDE/D5W 1,000 ML IV SCH (16:15)
[2023-11-04] MEDS ORDERED: METRONIDAZOLE/SODIUM CHLORIDE 100 ML IV SCH (17:00)
[2023-11-05 00:32] VITALS: BP 110/70; O2SAT 97
[2023-11-05 07:38] VITALS: BP 127/56; O2SAT 97
[2023-11-05 07:59] LABS: CALCIUM 8.4 mg/dL (8.5-10.1); CREATININE SERUM 0.84 mg/dL (0.55-1.02); GFR 66.65; MAGNESIUM 1.6 mg/dL (1.8-2.4); PHOSPHOROUS 2.2 mg/dL (2.5-4.9)
[2023-11-05 08:20] LABS: POTASSIUM 2.81 mEq/L (3.5-5.1)
[2023-11-05] MEDS ORDERED: FAMOTIDINE/PF 20 MG in 0.9 % SODIUM CHLORIDE 8 ML IV PUSH SCH (09:00)
[2023-11-05] MEDS ORDERED: MAGNESIUM SULFATE IN WATER 50 ML IV NR (10:00)
[2023-11-05] MEDS ORDERED: POTASSIUM CHLORIDE 20MEQ/100ML H2O PB IV SCH (12:00)
[2023-11-05] MEDS ORDERED: POTASSIUM PHOS,M-BASIC-D-BASIC 3 MM/ML VIAL IV ONE (13:00)
[2023-11-05 17:00] VITALS: BP 128/60; O2SAT 99
[2023-11-06 00:35] VITALS: BP 132/64; O2SAT 99
[2023-11-06 08:00] VITALS: BP 107/63
[2023-11-06 08:24] LABS: HEMATOCRIT 30.1 % (36.0-45.00); HEMOGLOBIN 10.3 g/dL (12.0-15.00); MEAN CELL VOLUME 91.6 fL (80.00-100.00); MEAN CORPUSCULAR HEMOGLOBIN 31.5 pg (27.00-32.0); MEAN CORPUSCULAR HGB CONC 34.4 g/dl (32.0-36.0); PLATELET COUNT 241 K/uL (150-450); RED BLOOD COUNT 3.28 M/uL (4.00-6.00); RED CELL DISTRIBUTION WIDTH 12.6 % (11.5-14.5)
[2023-11-06 09:00] LABS: CALCIUM 8.4 mg/dL (8.5-10.1); CREATININE SERUM 0.74 mg/dL (0.55-1.02); GFR 77.14; POTASSIUM 3.55 mEq/L (3.5-5.1)
[2023-11-06 09:23] LABS: PHOSPHOROUS 1.7 mg/dL (2.5-4.9)
[2023-11-06] MEDS ORDERED: POTASSIUM PHOS,M-BASIC-D-BASIC 15 MM in 0.9 % SODIUM CHLORIDE 250 ML IV NR (13:27)
[2023-11-06 16:00] VITALS: BP 99/60; O2SAT 98
[2023-11-07 00:36] VITALS: BP 117/59; O2SAT 98
[2023-11-07 08:51] VITALS: BP 110/60; O2SAT 99
[2023-11-07 16:35] VITALS: BP 104/68; O2SAT 100
[2023-11-08 00:13] VITALS: BP 133/63; O2SAT 100
[2023-11-08 07:58] LABS: HEMATOCRIT 30.5 % (36.0-45.00); HEMOGLOBIN 10.5 g/dL (12.0-15.00); MEAN CELL VOLUME 91.3 fL (80.00-100.00); MEAN CORPUSCULAR HEMOGLOBIN 31.3 pg (27.00-32.0); MEAN CORPUSCULAR HGB CONC 34.3 g/dl (32.0-36.0); PLATELET COUNT 219 K/uL (150-450); RED BLOOD COUNT 3.34 M/uL (4.00-6.00); RED CELL DISTRIBUTION WIDTH 12.5 % (11.5-14.5)
[2023-11-08 08:00] VITALS: BP 106/60; O2SAT 97
[2023-11-08 08:18] LABS: CALCIUM 8.8 mg/dL (8.5-10.1); CREATININE SERUM 0.82 mg/dL (0.55-1.02); GFR 68.53; MAGNESIUM 1.6 mg/dL (1.8-2.4); POTASSIUM 3.28 mEq/L (3.5-5.1)
[2023-11-08 09:01] LABS: PHOSPHOROUS 1.9 mg/dL (2.5-4.9)
[2023-11-08] MEDS ORDERED: POTASSIUM CHLORIDE 20MEQ/100ML H2O PB IV SCH (09:15)
[2023-11-08] MEDS ORDERED: MAGNESIUM SULFATE IN WATER 50 ML IV NR (09:15)
[2023-11-08] MEDS ORDERED: POTASSIUM PHOS,M-BASIC-D-BASIC 3 MM/ML VIAL IV NR (09:15)
[2023-11-08 16:00] VITALS: BP 130/75; O2SAT 100
[2023-11-08 21:30] VITALS: BP 121/62; O2SAT 100
[2023-11-09 01:44] VITALS: BP 126/58; O2SAT 98
[2023-11-09 06:56] LABS: HEMATOCRIT 32.3 % (36.0-45.00); MEAN CELL VOLUME 91.2 fL (80.00-100.00); PLATELET COUNT 241 K/uL (150-450); RED BLOOD COUNT 3.54 M/uL (4.00-6.00); RED CELL DISTRIBUTION WIDTH 12.6 % (11.5-14.5)
[2023-11-09 07:05] LABS: INR 1.04; PARTIAL THROMBOPLASTIN TIME 24.4 SECONDS (22.0-34.0); PROTHROMBIN TIME 10.9 SECONDS (9.0-11.5)
[2023-11-09 07:48] LABS: ALBUMIN 2.2 gm/dL (3.4-5.0); ALKALINE PHOSPHATASE 122 U/L (50-136); ALT/SGPT 10 U/L (12-78); ANION GAP 9 (10.0-20.0); AST/SGOT 12 U/L (15-37); BILIRUBIN TOTAL 0.13 mg/dL (0.3-1.2); BILIRUBIN,CONJUGATED < 0.10 mg/dL (0.0-0.2); BILIRUBIN,UNCONJUGATED 0.03 mg/dL (0.0-0.6); BLOOD UREA NITROGEN 14 mg/dL (7-18); BUN CREA RATIO 16 (7.0-25.0); CALCIUM 8.9 mg/dL (8.5-10.1); CARBON DIOXIDE 28 mEq/L (21-32); CHLORIDE 102 mmol/L (98-107); CHOL HDL RATIO 1.9 (0-5.0); CHOLESTEROL 90 mg/dL (0-200); CREATININE SERUM 0.86 mg/dL (0.55-1.02); GFR 64.86; GLUCOSE FASTING 124 mg/dL (65-100); HDL 48 mg/dl (40-60); LDL 28 mg/dl (0-130); OSMOLALITY SERUM 272 MOSM/KG (275-295); POTASSIUM 3.87 mEq/L (3.5-5.1); SODIUM 135 mmol/L (136-145); TOTAL PROTEIN 5.8 gm/dL (6.4-8.2); TRIGLYCERIDES 69 mg/dL (0-150); VLDL 13 (0-39)
[2023-11-09 08:03] LABS: PHOSPHOROUS 1.8 mg/dL (2.5-4.9)
[2023-11-09] MEDS ORDERED: POTASSIUM PHOS,M-BASIC-D-BASIC 15 MM in 0.9 % SODIUM CHLORIDE 250 ML IV NR (08:22)
[2023-11-09 08:49] VITALS: BP 99/52
[2023-11-09] MEDS ORDERED: BUPIVACAINE HCL/Mpf 0.5% 10ML VIAL ONE (17:34)
[2023-11-09] MEDS ORDERED: LIDOCAINE HCL 1%/EPINEPHRINE 20ML VIAL IJ ONE (17:34)
[2023-11-09] MEDS ORDERED: DEXTROSE 50 % IN WATER 0.5 G/ML DISP.SYRIN IV PRN (19:45)
[2023-11-09] MEDS ORDERED: ONDANSETRON HCL 2 MG/ML VIAL IV PRN (19:45)
[2023-11-09 22:43] VITALS: BP 124/69; O2SAT 98
[2023-11-10] VITALS: BP 123/75; O2SAT 97
[2023-11-10] MEDS ORDERED: METOCLOPRAMIDE HCL 5 MG/ML VIAL IV SCH (01:00)
[2023-11-10 08:39] LABS: HEMATOCRIT 30.8 % (36.0-45.00); MEAN CELL VOLUME 90.6 fL (80.00-100.00); MEAN CORPUSCULAR HEMOGLOBIN 30.8 pg (27.00-32.0); PLATELET COUNT 237 K/uL (150-450); RED CELL DISTRIBUTION WIDTH 12.6 % (11.5-14.5)
[2023-11-10 08:41] LABS: HEMOGLOBIN 10.5 g/dL (12.0-15.00)
[2023-11-10] MEDS ORDERED: MEPERIDINE HCL/PF 25 MG/ML VIAL IV STA (08:50)
[2023-11-10 08:52] VITALS: BP 127/65; O2SAT 98
[2023-11-10] MEDS ORDERED: MEPERIDINE HCL/PF 50 MG/ML VIAL IV SCH (09:00)
[2023-11-10] MEDS ORDERED: MEPERIDINE HCL/PF 25 MG/ML VIAL IV PRN (09:15)
[2023-11-10 09:22] LABS: ALBUMIN 1.9 gm/dL (3.4-5.0); CALCIUM 8.6 mg/dL (8.5-10.1); CREATININE SERUM 0.73 mg/dL (0.55-1.02); GFR 78.37; MAGNESIUM 1.7 mg/dL (1.8-2.4); POTASSIUM 3.78 mEq/L (3.5-5.1)
[2023-11-10] MEDS ORDERED: MAGNESIUM SULFATE IN WATER 50 ML IV NR (13:00)
[2023-11-10] MEDS ORDERED: POTASSIUM PHOS,M-BASIC-D-BASIC 3 MM/ML VIAL IV NR (13:00)
[2023-11-10 16:39] VITALS: BP 116/59; O2SAT 97
[2023-11-10] MEDS ORDERED: ENOXAPARIN SODIUM 40 MG/0.4 ML SYRINGE SUBCUTANEO SCH (17:00)
[2023-11-10] MEDS ORDERED: POTASSIUM CHLORIDE/D5W 1,000 ML IV SCH (19:30)
[2023-11-10] MEDS ORDERED: LORazepam 2 MG/ML VIAL IV PUSH SCH (21:45)
[2023-11-11] VITALS: BP 129/59; O2SAT 99
[2023-11-11 08:00] VITALS: BP 102/55; O2SAT 98
[2023-11-11] MEDS ORDERED: ENOXAPARIN SODIUM 40 MG/0.4 ML SYRINGE SUBCUTANEO SCH (09:00)
[2023-11-11] MEDS ORDERED: SODIUM CL 0.9% 100 ML IV.SOLN IV ONE (09:45)
[2023-11-11] MEDS ORDERED: METOPROLOL TARTRATE 5MG/5ML AMPUL IV SCH (11:29)
[2023-11-11] MEDS ORDERED: LIDOCAINE 5% 1 PATCH ADH. TOP SCH ×2 (11:30→11:34)
[2023-11-11 16:38] VITALS: BP 113/55; O2SAT 99
[2023-11-11 19:25] LABS: URINE APPEARANCE Clear; URINE BILIRRUBIN Negative (NEGATIVE); URINE BLOOD Large; URINE COLOR Yellow; URINE GLUCOSE Negative (NEGATIVE); URINE KETONE Trace (NEGATIVE); URINE LEUKOCYTE Moderate; URINE NITRATE Negative; URINE UROBILINOGEN 0.2 E.U./dl
[2023-11-11 19:28] LABS: URINE BACTERIA 65.5 uL (0.0-1933); URINE EPITHELIAL CELLS 5.4 uL (0.0-38.8); URINE RBC 759.2 uL (0.0-20.8); URINE WBC 46.8 uL (0.0-23.2)
[2023-11-11 20:32] LABS: URINE PROTEIN 100 (NEGATIVE)
[2023-11-12 00:38] VITALS: BP 114/57; O2SAT 99
[2023-11-12 05:25] LABS: MEAN CELL VOLUME 91.8 fL (80.00-100.00); MEAN CORPUSCULAR HGB CONC 34.3 g/dl (32.0-36.0); PLATELET COUNT 173 K/uL (150-450); RED BLOOD COUNT 2.28 M/uL (4.00-6.00); RED CELL DISTRIBUTION WIDTH 12.4 % (11.5-14.5)
[2023-11-12 05:58] LABS: CALCIUM 8.4 mg/dL (8.5-10.1); CREATININE SERUM 0.63 mg/dL (0.55-1.02); GFR 92.89; POTASSIUM 4.34 mEq/L (3.5-5.1); T4 TOTAL 7.39 UG/DL (4.8-13.9); TSH 1.03 uIU/mL (0.358-3.74)
[2023-11-12 07:06] LABS: HEMATOCRIT 20.9 % (36.0-45.00); HEMOGLOBIN 7.2 g/dL (12.0-15.00); MEAN CORPUSCULAR HEMOGLOBIN 31.5 pg (27.00-32.0)
[2023-11-12 07:08] LABS: PHOSPHOROUS 1.9 mg/dL (2.5-4.9)
[2023-11-12] MEDS ORDERED: FUROsemide 20 MG/2 ML VIAL IV SCH (07:45)
[2023-11-12 08:00] VITALS: BP 123/58; O2SAT 100
[2023-11-12] MEDS ORDERED: MORPHINE SULFATE 4 MG/ML CARTRIDGE IV PRN (10:45)
[2023-11-12] MEDS ORDERED: POTASSIUM PHOS,M-BASIC-D-BASIC 3 MM/ML VIAL IV ONE (12:00)
[2023-11-12 16:00] VITALS: BP 114/68
[2023-11-12] MEDS ORDERED: LORazepam 2 MG/ML VIAL IV PUSH SCH (20:00)
[2023-11-13 01:00] VITALS: BP 117/57; O2SAT 98
[2023-11-13] MEDS ORDERED: MEPERIDINE HCL/PF 25 MG/ML VIAL IV PRN (06:30)
[2023-11-13 08:00] VITALS: BP 113/70; O2SAT 99
[2023-11-13 14:14] LABS: HEMATOCRIT 30.9 % (36.0-45.00); HEMOGLOBIN 10.6 g/dL (12.0-15.00); MEAN CELL VOLUME 89.7 fL (80.00-100.00); MEAN CORPUSCULAR HEMOGLOBIN 30.7 pg (27.00-32.0); MEAN CORPUSCULAR HGB CONC 34.2 g/dl (32.0-36.0); PLATELET COUNT 167 K/uL (150-450); RED BLOOD COUNT 3.45 M/uL (4.00-6.00); RED CELL DISTRIBUTION WIDTH 13.6 % (11.5-14.5)
[2023-11-13 14:35] LABS: CALCIUM 9.1 mg/dL (8.5-10.1); CREATININE SERUM 0.58 mg/dL (0.55-1.02); GFR 102.19; MAGNESIUM 1.9 mg/dL (1.8-2.4); PHOSPHOROUS 2.6 mg/dL (2.5-4.9); POTASSIUM 4.23 mEq/L (3.5-5.1)
[2023-11-13 16:18] VITALS: BP 108/74; O2SAT 99
[2023-11-14 00:40] VITALS: BP 97/57; O2SAT 95
[2023-11-14 08:00] VITALS: BP 132/66; O2SAT 98
[2023-11-14] MEDS ORDERED: LIDOCAINE 5% 1 PATCH ADH. TOP SCH (09:00)
[2023-11-14] MEDS ORDERED: FLUCONAZOLE IN NACL,ISO-OSM 200 ML IV NR (10:45)
[2023-11-14 16:00] VITALS: BP 109/76; O2SAT 100
[2023-11-15 00:48] VITALS: BP 103/65; O2SAT 95
[2023-11-15 08:00] VITALS: BP 108/69; O2SAT 99
[2023-11-15] MEDS ORDERED: FLUCONAZOLE IN NACL,ISO-OSM 100 ML IV SCH (09:00)
[2023-11-15 13:17] VITALS: BP 117/74; O2SAT 96
[2023-11-15] MEDS ORDERED: ONDANSETRON HCL 4 MG in 0.9 % SODIUM CHLORIDE 50 ML IV SCH (14:34)
[2023-11-15 16:00] VITALS: BP 113/75; O2SAT 98
[2023-11-16 00:35] VITALS: BP 102/62; O2SAT 98
[2023-11-16 07:19] LABS: HEMATOCRIT 28.3 % (36.0-45.00); HEMOGLOBIN 9.7 g/dL (12.0-15.00); MEAN CELL VOLUME 89.6 fL (80.00-100.00); MEAN CORPUSCULAR HEMOGLOBIN 30.7 pg (27.00-32.0); MEAN CORPUSCULAR HGB CONC 34.3 g/dl (32.0-36.0); PLATELET COUNT 158 K/uL (150-450); RED BLOOD COUNT 3.16 M/uL (4.00-6.00); RED CELL DISTRIBUTION WIDTH 13.1 % (11.5-14.5)
[2023-11-16 07:35] LABS: INR 1.26; PROTHROMBIN TIME 13.5 SECONDS (9.0-11.5)
[2023-11-16 07:41] LABS: ALBUMIN 2.1 gm/dL (3.4-5.0); ALKALINE PHOSPHATASE 134 U/L (50-136); ALT/SGPT 20 U/L (12-78); ANION GAP 10 (10.0-20.0); AST/SGOT 36 U/L (15-37); BILIRUBIN,CONJUGATED < 0.10 mg/dL (0.0-0.2); BLOOD UREA NITROGEN 54 mg/dL (7-18); BUN CREA RATIO 74 (7.0-25.0); CALCIUM 9.5 mg/dL (8.5-10.1); CARBON DIOXIDE 26 mEq/L (21-32); CHLORIDE 109 mmol/L (98-107); CHOL HDL RATIO 5.9 (0-5.0); CHOLESTEROL 118 mg/dL (0-200); CREATININE SERUM 0.73 mg/dL (0.55-1.02); GFR 78.37; GLOBULINA 3.4 G/DL (2.4-3.5); GLUCOSE FASTING 127 mg/dL (65-100); HDL 20 mg/dl (40-60); LDL 67 mg/dl (0-130); OSMOLALITY SERUM 296 MOSM/KG (275-295); POTASSIUM 4.74 mEq/L (3.5-5.1); SODIUM 140 mmol/L (136-145); TOTAL PROTEIN 5.5 gm/dL (6.4-8.2); TRIGLYCERIDES 156 mg/dL (0-150); VLDL 31 (0-39)
[2023-11-16 08:00] VITALS: BP 119/58; O2SAT 100
[2023-11-16 08:00] LABS: UREA CLEARANCE 13.9 ML/MIN
[2023-11-16] MEDS ORDERED: 0.9 % SODIUM CHLORIDE 1,000 ML IV SCH (12:30)
[2023-11-16 16:00] VITALS: BP 158/73; O2SAT 100
[2023-11-17 00:57] VITALS: BP 128/77; O2SAT 98
[2023-11-17 06:55] LABS: HEMATOCRIT 28.2 % (36.0-45.00); HEMOGLOBIN 9.6 g/dL (12.0-15.00); MEAN CELL VOLUME 90.5 fL (80.00-100.00); MEAN CORPUSCULAR HEMOGLOBIN 30.9 pg (27.00-32.0); MEAN CORPUSCULAR HGB CONC 34.2 g/dl (32.0-36.0); PLATELET COUNT 155 K/uL (150-450); RED BLOOD COUNT 3.11 M/uL (4.00-6.00); RED CELL DISTRIBUTION WIDTH 13.7 % (11.5-14.5)
[2023-11-17 07:27] LABS: CALCIUM 9.6 mg/dL (8.5-10.1); CREATININE SERUM 0.84 mg/dL (0.55-1.02); GFR 66.65; MAGNESIUM 2.1 mg/dL (1.8-2.4); PHOSPHOROUS 3.6 mg/dL (2.5-4.9); POTASSIUM 4.53 mEq/L (3.5-5.1)
[2023-11-17 08:00] VITALS: BP 141/67; O2SAT 100
[2023-11-17 16:00] VITALS: BP 125/87; O2SAT 94
[2023-11-18] VITALS: BP 128/73; O2SAT 96
[2023-11-18 08:10] VITALS: BP 139/69; O2SAT 96
[2023-11-18] MEDS ORDERED: DIPHENHYDRAMINE HCL 50 MG/ML VIAL 1ML IV ONE (11:30)
[2023-11-18] MEDS ORDERED: MIDAZOLAM HCL 2 MG/2 ML VIAL IV ONE (11:30)
[2023-11-18] MEDS ORDERED: fentaNYL CITRATE 50 MCG/ML AMPUL IV PUSH ONE (11:30)
[2023-11-18 14:28] LABS: HEMATOCRIT 31.8 % (36.0-45.00); MEAN CELL VOLUME 88.6 fL (80.00-100.00); MEAN CORPUSCULAR HGB CONC 34.9 g/dl (32.0-36.0); PLATELET COUNT 135 K/uL (150-450); RED BLOOD COUNT 3.58 M/uL (4.00-6.00); RED CELL DISTRIBUTION WIDTH 14.1 % (11.5-14.5)
[2023-11-18 14:30] LABS: HEMOGLOBIN 11.1 g/dL (12.0-15.00)
[2023-11-18 16:00] VITALS: BP 130/62; O2SAT 96
[2023-11-19] VITALS: BP 114/59; O2SAT 95
[2023-11-19 08:00] VITALS: BP 130/61; O2SAT 97
[2023-11-19 16:00] VITALS: BP 126/73; O2SAT 96
[2023-11-20 00:39] VITALS: BP 147/67; O2SAT 96
[2023-11-20 08:18] VITALS: BP 136/65; O2SAT 99
[2023-11-20 16:00] VITALS: BP 122/60; O2SAT 99
[2023-11-21 01:04] VITALS: BP 130/60
[2023-11-21 07:56] VITALS: BP 129/64; O2SAT 98
== END 2023-11-21 12:41 | disposition home or self-care (01) | DRG 988 ==
LOC: ER 13:02 → SURH 17:09 → SURG 17:09 → SURH 17:25
PROVIDERS: General Practice; Internal Medicine; Internal Medicine Geriatric Medicine; Surgery; Urology; ADMIT Surgery; ATTEND Surgery
PROC: 02HV33Z Insertion of Infusion Device into Superior Vena Cava, Percutaneous Approach (ICD-10-PCS; 2023-10-21)
PROC: BW21ZZZ Computerized Tomography (CT Scan) of Abdomen and Pelvis (ICD-10-PCS; 2023-10-23)
PROC: B54CZZZ Ultrasonography of Left Lower Extremity Veins (ICD-10-PCS; 2023-10-26)
PROC: 0TJ54ZZ Inspection of Kidney, Percutaneous Endoscopic Approach (ICD-10-PCS; 2023-10-30)
PROC: 0D9670Z Drainage of Stomach with Drainage Device, Via Natural or Artificial Opening (ICD-10-PCS; 2023-10-30)
PROC: 0TP5X0Z Removal of Drainage Device from Kidney, External Approach (ICD-10-PCS; 2023-10-30)
PROC: 0TJB8ZZ Inspection of Bladder, Via Natural or Artificial Opening Endoscopic (ICD-10-PCS; 2023-10-30)
PROC: 0T7D8ZZ Dilation of Urethra, Via Natural or Artificial Opening Endoscopic (ICD-10-PCS; 2023-10-30)
PROC: 3E0G76Z Introduction of Nutritional Substance into Upper GI, Via Natural or Artificial Opening (ICD-10-PCS; 2023-10-30)
PROC: 0T788DZ Dilation of Bilateral Ureters with Intraluminal Device, Via Natural or Artificial Opening Endoscopic (ICD-10-PCS; principal; 2023-10-30 12:00)
PROC: BW21ZZZ Computerized Tomography (CT Scan) of Abdomen and Pelvis (ICD-10-PCS; 2023-10-31)
PROC: 4A12X4Z Monitoring of Cardiac Electrical Activity, External Approach (ICD-10-PCS; 2023-11-10)
PROC: 30243N1 Transfusion of Nonautologous Red Blood Cells into Central Vein, Percutaneous Approach (ICD-10-PCS; 2023-11-12)
DX: K56.600 Partial intestinal obstruction, unspecified as to cause (principal); I82.402 Acute embolism and thrombosis of unspecified deep veins of left lower extremity; N17.9 Acute kidney failure, unspecified; N39.0 Urinary tract infection, site not specified; L02.91 Cutaneous abscess, unspecified; N82.4 Other female intestinal-genital tract fistulae; N13.1 Hydronephrosis with ureteral stricture, not elsewhere classified; I10 Essential (primary) hypertension